=== PATIENT | male | born 2005 | race Two or more races ===

== ENCOUNTER 2025-02-05 14:12 | Emergency (ER) | payer OTHER ==
[~2025-02-05] VITALS: Ht 170.2 cm; Wt 71.0 kg
--- NOTE | 2025-02-05 14:53 | ED.PDOC ---
Psychiatric HPI Comments 19 year old male presents to the ED for the c/c of an Overdose. Pt states that he took too much Hydroxyzine because he was tying to "kill himself". Pt notes that he did change his mind, leading to him presenting to the ED to get help. Pt is noted to be calm and compliant at this time. No other associated symptoms, modifiers, recent injuries or sick contacts present at this time. Time Seen by MD: 14:47 Reviewed Notes: Nurses Notes, Medications, Allergies Information Source: Patient Mode of Arrival: EMS Severity of Pain: Moderate Severity of Mental Status: Moderate Severity of Symptoms: Moderate Timing: Hours Duration: Since onset, Hours Prehospital treatment: None Presents with: Suicidal Ideation Attempt: Other (OverDose) Ingestion: Drug(s) Ingested Circumstance: None Current substance abuse: Unknown Quality: None Location: None Location of pain or injury: None Associated signs and symptoms: Depression, Anxiety Past Medical History PAST MEDICAL HISTORY: Anxiety, Depression Surgical History: Denies all surgeries Family History Family History: Reviewed,noncontributory to illness, No family hx of Cancer, No family hx of DM, No family hx of Heart brandon, No family hx of HTN, No family hx ofKidney brandon, No family hx of Liver brandon, No family hx of Lung brandon, No family hx of Stroke Social History Smoker: Non-Smoker Alcohol: Denies ETOH Use Lives In: Home Constitutional: denies: chills, diaphoresis, fatigue, fever, malaise, sweats, weakness, others EENTM: denies: blurred vision, double vision, ear bleeding, ear discharge, ear drainage, ear pain, ear ringing, eye pain, eye redness, hearing loss, mouth pain, mouth swelling, nasal discharge, nose bleeding, nose congestion, nose pain, photophobia, tearing, throat pain, throat swelling, voice changes, others Respiratory: denies: cough, hemoptysis, orthopnea, SOB at rest, shortness of b reath, SOB with excertion, stridor, wheezing, others Cardiovascular: denies: chest pain, dizzy spells, diaphoresis, Dyspnea on exertion, edema, irregular heart beat, left arm pain, lightheadedness, palpitations, PND, syncope, others Gastrointestinal: denies: abdomen distended, abdominal pain, blood streaked bowels, constipated, diarrhea, dysphagia, difficulty swallowing, hematemesis, melena, nausea, poor appetite, poor fluid intake, rectal bleeding, rectal pain, vomiting, others Genitourinary: denies: burning, dysuria, flank pain, frequency, hematuria, incontinence, penile discharge, penile sore, pain, testicle pain, testicle swelling, urgency, others Neurological: denies: dizziness, fainting, headache, left sided numbness, left sided weakness, numbness, paresthesia, pre-existing deficit, right sided numbness, right sided weakness, seizure, speech problems, tingling, tremors, weakness, others Musculoskeletal: denies: back pain, gout, joint pain, joint swelling, muscle pain, muscle stiffness, neck pain, others Integumetry: denies: bruises, change in color, change in hair/nails, dryness, laceration, lesions, lumps, rash, wounds, others Allergic/Immunocompromised: denies: Difficulty Healing, Frequent Infections, Hives, Itching, others Hematologic/Lymphatic: denies: anemia, blood clots, easy bleeding, easy bruising, swollen glands, others Endocrine: denies: excessive hunger, excessive sweating, excessive thirst, excessive urination, flushing, intolerance to cold, intolerance to heat, unexplained weight gain, unexplained weight loss, others Psychiatric: reports: suicidal; denies: anxiety, bipolar disorder, depression, hopeless, panic disorder, schizophrenia, sleepless, others Physical Exam General Appearance: Mild Distress, Normal HEENT: Normal ENT Inspection, Pharynx Normal, TMs Normal Neck: Full Range of Motion, Non-Tender, Normal, Normal Inspection Respiratory: Chest Non-Tender, Lungs Clear, No Accessory Muscle Use, No Respiratory Distress, Normal Breath Sounds Cardiovascular: No Edema, No JVD, No Murmur, Normal Peripheral Pulses, Regular Rate/Rhythm Breast Exam: Deferred Gastrointestinal: Non Tender, No Pulsatile Mass, Normal Bowel Sounds, Soft Genitalia: Deferred Pelvic: Deferred Rectal: Deferred Extremities: No calf tenderness, Normal range of motion, Non-tender, No pedal edema Musculoskeletal : Apperance: Normal Neurologic: Alert, No Motor Deficits, Normal Mood, Other (SI) Cerebellar Function: Normal Reflexes: Normal Skin: Dry, Normal Color, Warm Lymphatic: No Adenopathy Was a procedure done? Was a procedure done?: No Psych Differential Dx Psych. Differential Dx: Anxiety, Bipolar Disorder, Depression, Hopeless, Suicidal OD Differential Dx: Alcohol Abuse, Bipolar Disorder, Delirium, Depression, Drug Overdose, Substance Abuse, Suicidal Attempt Suicidal Differential Dx: Alcohol Abuse, Anxiety, Bipolar Disorder, Depression, Panic Disorder, Substance Abuse X-Ray, Labs, Meds, VS Vital Signs Date Time Temp Pulse Resp B/P (MAP) Pulse Ox O2 Delivery O2 Flow Rate FiO2 02/06/25 14:35 98.2 71 16 117/62 (80) 97 98.2 02/06/25 08:00 98.0 68 16 121/56 (77) 100 98.0 02/06/25 08:00 68 16 100 Room Air* 0 21 02/05/25 23:40 57 02/05/25 21:45 74 02/05/25 20:28 79 02/05/25 19:32 69 17 99 Room Air* 0 21 02/05/25 19:29 98.0 69 17 129/69 (89) 99 98.0 02/05/25 15:22 96 02/05/25 15:02 99.7 102 16 117/71 (86) 95 99.7 Lab Test 02/05/25 19:50 02/05/25 15:12 Range/Units Urine Color Yellow Yellow Urine Clarity Clear Clear Urine pH 6.0 5.0-9.0 Urine Specific [place] 1.027 1.001-1.035 Urine Protein Negative Negative Urine Ketones Negative Negative Urine Blood Negative Negative /uL Urine Nitrite Negative Negative Urine Bilirubin Negative Negative Urine Urobilinogen Normal Negative mg/dL Urine Leukocyte Esterase Negative Negative /uL Urine RBC <1 0 - 3 /hpf Urine Microscopic WBC 1 0-3 /HPF Urine Squamous Epithelial Cells Few <5 /hpf Urine Bacteria None seen None Seen /hpf Urine Mucus Few None Seen Urine Glucose Normal Normal mg/dL Urine Opiates Screen Neg NEGATIVE Urine Fentanyl Screen Neg NEGATIVE Urine Barbiturates Screen Neg NEGATIVE Urine Phencyclidine Screen Neg NEGATIVE Urine Amphetamines Screen Neg NEGATIVE Urine Benzodiazepines Screen Pos NEGATIVE Urine Cocaine Screen Neg NEGATIVE Urine Cannabinoids Screen Neg NEGATIVE White Blood Count 7.9 4.4-10.8 10^3/uL Red Blood Count 6.23 H 4.5-5.90 10^6/uL Hemoglobin 17.7 H 13.5-17.5 g/dL Hematocrit 51.2 41.0-53.0 % Mean Corpuscular Volume 82.3 80.0-100.0 fL Mean Corpuscular Hemoglobin 28.4 28.0-32.0 pg Mean Corpuscular Hemoglobin Concent 34.5 32.0-36.0 g/dL Red Cell Distribution Width 13.9 11.8-14.3 % Platelet Count 188 140-450 10^3/uL Mean Platelet Volume 7.7 6.9-10.8 fL Neutrophils (%) (Auto) 63.3 37.0-80.0 % Lymphocytes (%) (Auto) 27.4 10.0-50.0 % Monocytes (%) (Auto) 8.0 0.0-12.0 % Eosinophils (%) (Auto) 1.0 0.0-7.0 % Basophils (%) (Auto) 0.3 0.0-2.0 % Neutrophils # (Auto) 5.0 1.6-8.6 10 ^3/uL Lymphocytes # (Auto) 2.2 0.4-5.4 10 ^3/uL Monocytes # (Auto) 0.6 0-1.3 10 ^3/uL Eosinophils # (Auto) 0.1 0-0.8 10 ^3/uL Basophils # (Auto) 0 0-0.2 10 ^3/uL Nucleated Red Blood Cells 0.3 % Sodium Level 142 136-145 mmol/L Potassium Level 4.1 3.5-5.1 mmol/L Chloride Level 107 98-107 mmol/L Carbon Dioxide Level 25 20-31 mmol/L Anion Gap 10 5-15 Blood Urea Nitrogen 11 9-23 mg/dL Creatinine 0.96 0.700-1.30 mg/dL Glomerular Filtration Rate Calc 117 >90 mL/min BUN/Creatinine Ratio 11.5 10.0-20.0 Serum Glucose 85 74-106 mg/dL Calcium Level 10.1 8.7-10.4 mg/dL Salicylates Level < 3.0 -30 mg/dL Acetaminophen Level < 2.0 L 10.0-20.0 UG/ML Plasma/Serum Blood Alcohol < 3.0 <10 mg/dL Current Medications Medications (Trade) Dose Ordered Sig/Shaye Route Start Time Stop Time Status Last Admin Sodium Bicarbonate 50 ml ONCE ONCE IV 02/05/25 20:45 02/05/25 20:46 DC 02/05/25 20:44 Sodium Bicarbonate 50 ml ONCE ONCE IV 02/05/25 22:15 02/05/25 22:16 DC 02/05/25 22:13 Time of 1ST Reevaluation: 15:18 Reevaluation 1ST: Unchanged Patient Education/Counseling: Diagnosis, Treatment Family Education/Counseling: No Family Present Departure 1 Departure Time of Disposition: 14:47 (Patient is medically cleared. Patient is evaluated by psychiatry recommends patient be discharged home we will follow up as an outpatient) Impression: Primary Impression: Suicide ideation Disposition: 01 HOME / SELF CARE / HOMELESS Condition: Stable Additional Instructions: It is important to follow up with your regular doctors. Discharged With: Relative (Father) Critical Care Note Critical Care Time?: No Stability Stability form required: No Heart Score Heart Score: Heart Score Response (Comments) Value History N/A 0 EKG N/A 0 Age N/A 0 Risk Factors N/A 0 Troponin N/A 0 Total 0 I personally scribed for SEBASTIAN DEWEY MD ([email or web address]) on 02/05/25 at 14:53. Electronically submitted by Nolan Pineda ([email or web address]). SEBASTIAN DEWEY MD Feb 05, 2025 14:53
[2025-02-05 15:26] LABS: Basophils # (auto) 0 10 ^3/uL (0-0.2); Eosinophils # (auto) 0.1 10 ^3/uL (0-0.8); Hemoglobin 17.7 g/dL (13.5-17.5); Monocytes # (auto) 0.6 10 ^3/uL (0-1.3); Nucleated Red Blood Cells % 0.3 %
[2025-02-05 15:27] LABS: Basophils % (auto) 0.3 % (0.0-2.0); Hematocrit 51.2 % (41.0-53.0); Lymphocytes # (auto) 2.2 10 ^3/uL (0.4-5.4); Lymphocytes % (auto) 27.4 % (10.0-50.0); Mean Corpuscular Hemoglobin 28.4 pg (28.0-32.0); Mean Corpuscular Hgb Conc. 34.5 g/dL (32.0-36.0); Mean Corpuscular Volume 82.3 fL (80.0-100.0); Neutrophils % (auto) 63.3 % (37.0-80.0); Platelet Count (auto) 188 10^3/uL (140-450); Red Blood Cells 6.23 10^6/uL (4.5-5.90); Red Cell Distribution Width 13.9 % (11.8-14.3); White Blood Cell 7.9 10^3/uL (4.4-10.8)
[2025-02-05 15:37] LABS: Potassium 4.1 mmol/L (3.5-5.1); Sodium 142 mmol/L (136-145)
[2025-02-05 15:38] LABS: Anion Gap 10 (5-15); Calcium 10.1 mg/dL (8.7-10.4); Carbon Dioxide 25 mmol/L (20-31); Chloride 107 mmol/L (98-107)
[2025-02-05 15:43] LABS: BUN/Creatinine Ratio 11.5 (10.0-20.0); Blood Urea Nitrogen 11 mg/dL (9-23); Glucose 85 mg/dL (74-106)
[2025-02-05 15:44] LABS: Blood Alcohol < 3.0 mg/dL (<10)
[2025-02-05 15:46] LABS: Acetaminophen < 2.0 UG/ML (10.0-20.0); Salicylate < 3.0 mg/dL (-30)
[2025-02-05 19:32] VITALS: PULSE 69; RESP 17; O2SAT 99
[2025-02-05 19:52] LABS: Urine Bacteria None Seen /hpf (None Seen)
[2025-02-05 20:05] LABS: Urine Blood Negative /uL (Negative); Urine Clarity Clear (Clear); Urine Color Yellow (Yellow); Urine Mucus FEW (None Seen); Urine Protein, UAD Negative (Negative); Urine Specific Gravity 1.027 (1.001-1.035); Urine Squamous Epithelial Cell FEW /hpf (<5); Urine Urobilinogen Normal (Negative); Urine WBC 1 /HPF (0-3)
[2025-02-05 20:17] LABS: Cocaine Screen, Urine Neg (NEGATIVE)
[2025-02-05 20:23] LABS: Amphetamine Screen, Urine Neg (NEGATIVE); Barbiturate Scree,Urine Neg (NEGATIVE); Benzodiazephine Screen, Urine Pos (NEGATIVE); Cannabinoid Screen, Urine Neg (NEGATIVE); Opiate Scree,Urine Neg (NEGATIVE); Phencyclidine Screen, Urine Neg (NEGATIVE)
[2025-02-05] MEDS: SODIUM BICARB 8.4% 50Meq/50ml SYR Vial IV ONE ×2 (20:44→22:13)
--- NOTE | 2025-02-06 04:34 | DVHINCON2 ---
Date of Service if different f: Feb 06, 2025 Time of Service: 04:04 Consult Consult Note PSYCHIATRY ED NEW CONSULT HPI: 19 yo pt with PPH of depression and anxiety presents to ED BIB parent for safety, psychiatric stabilization, and possible med initiation/optimization in setting of intentional drug OD - pt ingested about 10 tabs of Hydroxyzine 25 mg.. Psychiatry consulted for safety evaluation and recommendations in context of current presentation Pt reports over past several weeks experiencing worsening depressed mood, hopelessness/helplessness, negative thoughts, isolation/withdrawn, loss of interest, decreased energy, difficulty with focus, poor sleep/appetite, low self-worth, amotivation, and anxiety symptoms to include excessive worry, rumination, restlessness, racing/intrusive thoughts, feeling tensed, and irritability although some symptoms appears chronic in nature. Also intermittent SI that are fleeting but worsening over past several days leading to suicide gesture via intentional drug OD of ~10 tabs of Hydroxyzine 25 mg tabs. Iden tifies [place] and feeling "overwhelmed with life". Denies HI/AVH/paranoia/catatonic/perceptual disturbances/personality changes. No overt manic, psychotic, cognitive, dissociative phenomena, panic, OCD, PTSD, or somatic symptoms noted. Pt adamantly denies ingestion as suicide attempt but more of a gesture. Pt now expresses remorse/regret for ingestion I am not going to do it again Currently does have active outpt MH services established at this time (weekly therapist). 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 Denies FH of psych hospitalizations, suicide attempts, or completed suicides No acute medical/chronic pain issues, hx of seizures/TBI, or recent head injurie s, NKDA Denies hx of SI/SIB/SA/PSG or prior psych hospitalizations/5150 holds. Denies history of violence, unprovoked aggression, or assaultive behaviors. Denies recent hx of impulsivity, attention seeking behaviors, anger outbursts, emotional dysregulation, mood reactivity, or engaging in risky behaviors. Denies any legal problems Currently denies SI/HI/AVH. Does not have access to firearms. Identifies self/family as PPF. No acute safety concerns noted during encounter MSE: General Appearance/Behavior: Alert and awake; appears stated age, fair grooming and hygiene; calm and cooperative, fair eye contact, no PMA/PMR Speech: coherent, rrr Thought Process: L/L/GD Thought Content: Abnormal Thoughts and Perceptions: denies dissociative symptoms Homicidality / Violent Thoughts: adamantly denies HI Suicidality: adamantly denies SI Hallucinations: denies AVTH Delusions: denies paranoia, persecutory, or grandiose delusions Obsessions /compulsions: None Judgment and Insight: fair/fair Mood & Affect: "okay" with mood-congruent, somewhat restricted but appropriate Orientation: oriented x 3 Attention/Concentration: appears intact Cognition: grossly intact Assessment: 19 yo pt with PPH of depression and anxiety presents to ED BIB parent for safety, psychiatric stabilization, and possible med initiation/optimization in setting of intentional drug OD - pt ingested about 10 tabs of Hydroxyzine 25 mg Currently denies SI/HI/AVH. Pt adamantly denies earlier ingestion as suicide attempt but more of a gesture - "i was feeling overwhelmed". Pt now expresses remorse/regret for ingestion Presently, pt does not show any signs of immediate danger to self/others or GD that would necessitate 5150 or involuntary psych admission. However offered voluntary psych hospitalization but pt declined at this time, rather expressed interest in further ED observation/reevaluation in AM to ensure SI does not resurface upon awakening Hence, recommend overnight ED observation and psych reassessment in ~ 12 hrs to assess AFTER FAMILY MEMBER PRESENT at bedside for ongoing safety/psychiatric stabilization and to determine if higher level of care (i.e inpt psych h ospitalization) or 5150 hold is warranted If no acute/problematic events overnight and pt continues to show improved J/I, appears hopeful and future-oriented, participates in safety plan, and continues to deny any SI and no safety concerns noted, can consider discharge back to current residence and f/u with outpt MH providers Currently rx'd Sertraline 100 mg qd and Hydroxyzine 25 mg bid PRN. No indication to change current med regimen at this time. Pt verbalized understanding and is receptive to above tx plan Primary Diagnosis: Major Depressive disorder, moderate, w/o PF. Anxiety disorder unspecified This case was discussed with ED nurse/provider and all parties in agreement with above tx plan Zaid Collins MD Plan discussed with: Patient ZAID COLLINS MD Feb 06, 2025 04:34
--- NOTE | 2025-02-06 07:10 | ECG ---
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
--- NOTE | 2025-02-06 07:10 | ECG ---
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
--- NOTE | 2025-02-06 07:11 | ECG ---
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
[2025-02-06 08:00] VITALS: PULSE 68; RESP 16; O2SAT 100
--- NOTE | 2025-02-06 14:08 | DVHINCON2 ---
Date of Service if different f: Feb 06, 2025 Consultation (CONSTANTINE) Labs Laboratory Tests Test 02/05/25 15:12 02/05/25 19:50 White Blood Count 7.9 10^3/uL (4.4-10.8) Red Blood Count 6.23 10^6/uL (4.5-5.90) Hemoglobin 17.7 g/dL (13.5-17.5) Hematocrit 51.2 % (41.0-53.0) Mean Corpuscular Volume 82.3 fL (80.0-100.0) Mean Corpuscular Hemoglobin 28.4 pg (28.0-32.0) Mean Corpuscular Hemoglobin Concent 34.5 g/dL (32.0-36.0) Red Cell Distribution Width 13.9 % (11.8-14.3) Platelet Count 188 10^3/uL (140-450) Mean Platelet Volume 7.7 fL (6.9-10.8) Neutrophils (%) (Auto) 63.3 % (37.0-80.0) Lymphocytes (%) (Auto) 27.4 % (10.0-50.0) Monocytes (%) (Auto) 8.0 % (0.0-12.0) Eosinophils (%) (Auto) 1.0 % (0.0-7.0) Basophils (%) (Auto) 0.3 % (0.0-2.0) Neutrophils # (Auto) 5.0 10 ^3/uL (1.6-8.6) Lymphocytes # (Auto) 2.2 10 ^3/uL (0.4-5.4) Monocytes # (Auto) 0.6 10 ^3/uL (0-1.3) Eosinophils # (Auto) 0.1 10 ^3/uL (0-0.8) Basophils # (Auto) 0 10 ^3/uL (0-0.2) Nucleated Red Blood Cells 0.3 % Sodium Level 142 mmol/L (136-145) Potassium Level 4.1 mmol/L (3.5-5.1) Chloride Level 107 mmol/L (98-107) Carbon Dioxide Level 25 mmol/L (20-31) Anion Gap 10 (5-15) Blood Urea Nitrogen 11 mg/dL (9-23) Creatinine 0.96 mg/dL (0.700-1.30) Glomerular Filtration Rate Calc 117 mL/min (>90) BUN/Creatinine Ratio 11.5 (10.0-20.0) Serum Glucose 85 mg/dL (74-106) Calcium Level 10.1 mg/dL (8.7-10.4) Salicylates Level < 3.0 mg/dL (-30) Acetaminophen Level < 2.0 UG/ML (10.0-20.0) Plasma/Serum Blood Alcohol < 3.0 mg/dL (<10) Urine Color Yellow (Yellow) Urine Clarity Clear (Clear) Urine pH 6.0 (5.0-9.0) Urine Specific [place] 1.027 (1.001-1.035) Urine Protein Negative (Negative) Urine Ketones Negative (Negative) Urine Blood Negative /uL (Negative) Urine Nitrite Negative (Negative) Urine Bilirubin Negative (Negative) Urine Urobilinogen Normal mg/dL (Negative) Urine Leukocyte Esterase Negative /uL (Negative) Urine RBC <1 /hpf (0 - 3) Urine Microscopic WBC 1 /HPF (0-3) Urine Squamous Epithelial Cells Few /hpf (<5) Urine Bacteria None seen /hpf (None Seen) Urine Mucus Few (None Seen) Urine Glucose Normal mg/dL (Normal) Urine Opiates Screen Neg (NEGATIVE) Urine Fentanyl Screen Neg (NEGATIVE) Urine Barbiturates Screen Neg (NEGATIVE) Urine Phencyclidine Screen Neg (NEGATIVE) Urine Amphetamines Screen Neg (NEGATIVE) Urine Benzodiazepines Screen Pos (NEGATIVE) Urine Cocaine Screen Neg (NEGATIVE) Urine Cannabinoids Screen Neg (NEGATIVE) Appetite: Fair Appearance: Stated age, Groomed, Clean Psychomotor activity: WNL Behavioral: Cooperative Eye contact: Appropriate Speech: WNL Affect: Appropriate Mood: Anxious Thought processes: Linear/Goal-directed Thought content: WNL Suicidal ideations: Absent Homicidal ideations: Absent Orientation: Person, Place, Time, Situation Memory intact: Recent Intellect: Average Abstractability: WNL Concentration: Adequate Attention: Adequate Judgement: WNL Insight: Fair Vitals Vital Signs Date Time Temp Pulse Resp B/P (MAP) Pulse Ox O2 Delivery O2 Flow Rate FiO2 02/06/25 08:00 98.0 68 16 121/56 (77) 100 98.0 02/06/25 08:00 Room Air* 0 21 Treatment plan discussed: With staff, Family Medication adjusted: No Diagnosis: MDD, unspecified anxiety Plan : Pt presently denies suicidal/homicidal ideation and appears future- oriented He also declines Vol psych admission. He is receiving weekly therapy and medications. recommend discharge to follow up with outpatient services and continue current psychotropic medications discussed precautions for returning to ED if Si/Hi or worsening mood symptoms, and he verbalized understanding History of Present Illness Reason for Consult : Follow up telepsychiatry HPI : This is a 19-year-old male with prior hx of depression and anxiety presented to ED for attempted overdose of 10 tablets of hydroxyzine 25 mg. Patient had initial Telepsychiatry evaluation with recommendation for reevaluation in 12 hours. No behavioral concerns reported overnight On exam today, dad is at bedside. patient reports feeling better, but some Gi upset. 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 He was stressed with returning to service. He also believed he was returning late after leave and did not want to receive an authorized absence. He later regretted his actions of OD and presented to ED. He reports depression began in high school and began using medications and therapy while in in October of this year. It has helped some. He had increase in Sertraline to 100mg 3 weeks ago, denies increase or worsening suicidal thoughts. He presently denies suicidal/homicidal ideation. He denies auditory/visual hallucinations or paranoid thoughts. He wants to continue services and looks forward to using the training he receives to later work with [employer]. Dad denies any concerns a this time . He denies concerns for re-attempts. He does want patient to talk more opening going forward and not hold his concerns inward. JAY JAY PALOMO [facility] Feb 06, 2025 14:08
[2025-02-06 14:35] VITALS: BP 117/62; PULSE 71; RESP 16; TEMP 98.2; O2SAT 97
--- NOTE | 2025-02-06 18:58 | ECG ---
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
--- NOTE | 2025-02-07 11:06 | ECG ---
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
== END 2025-02-06 15:04 | disposition home or self-care (01) ==
LOC: ER 14:12
DX: T43.592A Poisoning by other antipsychotics and neuroleptics, intentional self-harm, initial encounter (principal); R45.851 Suicidal ideations; R94.31 Abnormal electrocardiogram [ECG] [EKG]; F41.9 Anxiety disorder, unspecified; F32.A Depression, unspecified; Y92.89 Other specified places as the place of occurrence of the external cause
CPT/HCPCS: 36415; 80048; 80307; 80320; 80329; 81001; 85025; 93005; 96374; 96376